=== PATIENT | female | born 1990 | race Caucasian/White ===

== ENCOUNTER 2022-01-08 16:23 | Outpatient (CLI) | payer BC, SELFPAY | END 2022-01-08 16:24 | disposition home or self-care (01) | LOC: ANHLAB 16:26 | PROVIDERS: PCP Family Medicine; Visit Provider Obstetrics & Gynecology | DX: O20.0 Threatened abortion (principal); Z3A.00 Weeks of gestation of pregnancy not specified | CPT/HCPCS: 36415; 84702; 86850; 86900; 86901 ==

== ENCOUNTER 2022-07-20 16:31 | Emergency (ER) | payer BC, SELFPAY ==
[2022-07-20] VITALS (26 sets, daily range): BP systolic 104–139; BP diastolic 68–97; PULSE 85–109; RESP 14–27; TEMP 36.2–36.4; O2SAT 91–100
--- NOTE | ~2022-07-20 | CT_ITS ---
Clinical Indication: Shortness of breath, tachycardia CT Scan of the Chest with Contrast: Technique: Contiguous sections were acquired throughout the chest after intravenous administration of 100 cc of Omnipaque 350. Dose reduction technique was used on this scan by utilizing automated expos ure control and iterative reconstruction technique. The dose-length product (DLP) was 585.48 mGy-cm. Findings: There is no evidence of any significant mediastinal, hilar or axillary lymphadenopathy. There is no f illing defect in the pulmonary arterial tree to suggest pulmonary embolus. There is no evidence of ao rtic dissection or aneurysm. There is no evidence of pleural or pericardial effusion. The lungs are clear, aside from probable minimal dependent hypoventilatory changes. Images through the upper abdomen reveal no abnormalities. Impression: No evidence of pulmonary embolus, aortic dissection, or aortic aneurysm. No significant pulmonary abnormality evident. Reviewed, dictated and finalized at [facility]. Impression: No evidence of pulmonary embolus, aortic dissection, or aortic aneurysm. No significant pulmonary abnormality evident.
--- NOTE | 2022-07-20 16:34 | ECG_ITS ---
Measurements Intervals [place] Rate: 84 P: 40 MO: 132 QRS: 50 QRSD: 94 T: 36 QT: 347 QTc: 410 Interpretive Statements SINUS RHYTHM NORMAL ELECTROCARDIOGRAM NO PREVIOUS ECG AVAILABLE FOR COMPARISON Electronically Signed On 07-21-2022 7:20:36 CDT by Moody Yates M.D.
[2022-07-20 17:11] LABS: Basophils Percent Auto 0.5 % (0.2-1.2); Eosinophils Absolute Auto 0.2 K/mm3 (0-0.3); Eosinophils Percent Auto 2.2 % (0-4.4); Hematocrit 34.1 % (37.0-47.0); Hemoglobin 11.4 g/dL (12.0-15.0); Immature Granulocyte Percent A 1.2 % (0-0.5); Lymphocytes Absolute Auto 2.72 K/mm3 (0.9-3.2); Mean Corpuscular HGB Conc 33.4 g/dl (32-36); Mean Corpuscular Hemoglobin 31.9 pg (26-34); Mean Corpuscular Volume 95.5 fl (80-100); Mean Platelet Volume 9.5 fl (7.4-10.4); Monocytes Absolute Auto 0.5 K/mm3 (0.1-0.6); Monocytes Percent Auto 6.3 % (2.6-8.5); Neutrophils Absolute Auto 4.7 K/mm3 (1.3-6.7); Neutrophils Percent Auto 56.8 % (45.5-73.1); Platelet Count Result 179 k/mm3 (150-375); Red Blood Count 3.57 M/mm3 (4.2-5.4); Red Cell Distribution Width 12.6 % (11.5-14.5); White Blood Count 8.2 K/mm3 (4.5-10.0)
[2022-07-20 17:23] LABS: Alanine Aminotransferase 20 U/L (6-35); Albumin Level 3.3 g/dL (3.5-5.1); Alkaline Phosphatase 88 U/L (38-126); Anion Gap 4 mmol/L (8-16); Aspartate Amino Transferase 24 U/L (14-36); Bilirubin,Total 0.4 mg/dL (0.2-1.3); Blood Urea Nitrogen 8 mg/dL (7-17); Calcium 8.2 mg/dL (8.4-10.2); Carbon Dioxide 27 mmol/L (22-30); Chloride 104 mmol/L (98-107); Estimated CRCL calculation 114 ml/min; Estimated Glomerular Filt Rate > 60; Glucose 110 mg/dL (65-110); Potassium 3.6 mmol/L (3.4-5.0); Sodium 135 mmol/L (137-145)
--- NOTE | 2022-07-20 18:20 | PC.NURSE ---
Patient states her son had strep recently and her cough is similar to the one her son had.
--- NOTE | 2022-07-20 19:09 | ED.SOB ---
HPI - SOB/Dyspnea General Chief Complaint: Shortness of Breath/Dyspnea Stated Complaint: sob, high heart rate Time Seen by Provider: 07/20/22 18:21 History of Present Illness HPI Narrative: 32-year-old female presented the emergency department for evaluation of worsening shortness of breath and rapid heart rate. Patient states over the course of the last few days she has had increased shortness of breath associated with exertion. Patient is 33 weeks and follows up with Dr. Bustos. Patient was referred to the emergency department for evaluation. Patient states she did have a recent sick child at home and felt that she was exposed. Patient was swabbed for strep throat but was negative. Patient has had no COVID testing. Patient denies any chest pain. Patient does have an underlying history of asthma. Patient states she has had increased wheeze as well. Patient denies any vaginal bleeding vaginal discharge or uterine cramping. Related Data Allergies Allergy/AdvReac Type Severity Reaction Status Date / Time morphine Allergy Intermediate Hives Verified 07/16/22 10:59 Review of Systems Review of Systems: All systems reviewed & are unremarkable except as noted in HPI and below PMFSH Family History Family History Other Heart disease Hyperlipidemia Hypertension Social History Social History (Updated 07/16/22 @ 11:00 by Viktoriya Cevallos) Social History: Smoking status: Never smoker Second hand tobacco smoke exposure: No Alcohol intake: current Alcohol use details: Rarely Substance use: never Substance use type: does not use Lack of Transportation: No Lack of Food: Never True Current Housing: I Have Housing Concerned About Future Housing: No Difficulty Paying Gas/Electric Bills: No Difficulty Paying for Meds: No Currently Unemployed: No Education: Decline to Answer Difficulty w/ Childcare or Family Care: No Living arrangements: with family Occupation/Education: occupation Gender identity (if verbalized by the patient): Female Sexual Orientation (if Verbalized by the Patient): Straight or Heterosexual Exam Narrative: APPEARANCE: Well appearing, no pain, no distress, well-nourished. HEAD: normocephalic, atraumatic. EYES: PERRLA/EOMI, conjunctivae clear. NOSE: Normal no drainage THROAT: Pharynx clear, no exudate. NECK: Supple. No adenopathy, no masses. RESPIRATORY: Airway patent, respirations nonlabored. Clear to auscultation bilaterally, no rales, rhonchi, wheezing. CARDIOVASCULAR: Regular rate and rhythm without murmurs rubs or gallops. ABDOMINAL: Soft, nontender, nondistended, normal bowel sounds MUSCULOSKELETAL: Moves all extremities. Strength/ROM intact, No edema, No calf tenderness. NEURO: Alert. Cranial nerves II through XII intact. Grossly intact SKIN: Warm, dry. Normal Color Course Course Emergency Course: 32-year-old female presenting to the ED for evaluation of increased shortness of breath. Patient initially presented to OB but she was referred to the emergency department for evaluation. We are calling OB to have them run a toco monitor. Patient is mildly tachycardic and does have some wheeze on exam. Patient will be treated with IV fluids, albuterol nebulizer and a D-dimer is pending. The risk and benefits of doing the CTA scan was discussed with the patient. All questions concerns were addressed. Patient is afebrile with no leukocytosis. Patient was negative for COVID influenza and RSV. CTA showed no evidence of pulmonary embolism. Patient was evaluated by [facility] and had a toco monitor. [facility] nurse discussed the case with Dr. Bustos and they were comfortable with the plan for discharge to home. Patient's heart rate improved with rehydration. Patient felt that her breathing improved after a breathing treatment. CTA was negative for pulm embolism. Patient was prescribed a prescription f
--- NOTE | 2022-07-20 19:10 | PC.NURSE ---
Dr. Desai advised to call OB and have a TOCO monitor placed on the patient. Called [facility] who advised they will be down shortly.
[2022-07-20] MEDS: SODIUM CHLORIDE 0.9% IV 1,000 ML 500 ML IV CONT (19:20)
[2022-07-20] MEDS: ALBUTEROL SULFATE NEB 2.5 MG/3 ML INH INHALATION (19:24)
[2022-07-20 19:26] LABS: Influenza A QL RT-PCR Negative (Negative); Influenza B QL RT-PCR Negative (Negative); RSV RNA, RT-PCR Negative (Negative); SARS-CoV-2 RNA PCR Negative (Negative)
== END 2022-07-20 21:36 | disposition home or self-care (01) ==
PROVIDERS: Emergency Provider Emergency Medicine; PCP Family Medicine
DX: O26.893 Other specified pregnancy related conditions, third trimester (principal); R06.02 Shortness of breath; Z20.822 Contact with and (suspected) exposure to COVID-19; Z3A.33 33 weeks gestation of pregnancy
CPT/HCPCS: 36415; 71275; 80053; 85025; 85380; 87637; 93005; 94640; 96360; 96361; 99284; J7030; Q9967

== ENCOUNTER 2022-08-28 06:38 | Outpatient (CLI) | payer BC, SELFPAY ==
[2022-08-28 07:10] LABS: Hematocrit 32.8 % (37.0-47.0); Hemoglobin 10.9 g/dL (12.0-15.0); Mean Corpuscular HGB Conc 33.2 g/dl (32-36); Mean Corpuscular Hemoglobin 30.4 pg (26-34); Mean Corpuscular Volume 91.4 fl (80-100); Mean Platelet Volume 9.7 fl (7.4-10.4); Platelet Count Result 184 k/mm3 (150-375); Red Blood Count 3.59 M/mm3 (4.2-5.4); Red Cell Distribution Width 12.3 % (11.5-14.5); White Blood Count 7.2 K/mm3 (4.5-10.0)
[2022-08-29 15:56] LABS: Rapid Plasma Reagin Non-Reactive (NonReactive)
== END 2022-08-28 06:39 | disposition home or self-care (01) ==
LOC: ANHLAB 06:40
PROVIDERS: PCP Family Medicine; Visit Provider Obstetrics & Gynecology
DX: Z01.818 Encounter for other preprocedural examination (principal)
CPT/HCPCS: 36415; 85027; 86592; 86850; 86900; 86901

== ENCOUNTER 2022-08-28 09:58 | Inpatient (IN) | payer BC, SELFPAY ==
[2022-08-28] VITALS (42 sets, daily range): BP systolic 95–131; BP diastolic 53–93; PULSE 71–126; RESP 14–20; TEMP 36.2–36.8; O2SAT 95–99; BMI 42.0
[2022-08-28] MEDS: LACTATED RINGERS 1,000 ML 125 ML IV CONT ×2 (10:58→12:05)
--- NOTE | 2022-08-28 11:23 | LDADM ---
This patient, Helen Avalos, was admitted to Labor/Delivery/Recovery 119 on 08/28/22 at 09:58. Plans for surgery/ and pain management and were discussed with patient. Patient/family oriented to hospital policies and general routines including ID bracelet, bed and alarms, visiting hours, pain management, procedures, bathroom and other care routines, personal items, smoking policy, room service/diet and guest tray routines, infant security routines, and visiting hours. Patient/Family are encouraged to report perceived risks to care and to ask questions if they do not understand what they are told or what they should do.
--- NOTE | 2022-08-28 11:33 | WPDANESEPPF ---
Anes - Initial Pre Proc Eval Procedure: Operation Date: 08/28/22 12:00 Proposed Procedures p Repeat Section - Kavin Brito MD Date/Time: 08/28/22 11:33 Surgeon: Kavin Brito MD Pre Op Diagnosis: C/S Patient Data Age: 32 Gender: F Height: 1.68 m Weight: 118 kg Last Vital Signs Pulse 92 08/28/22 11:31 BP 121/93 H 08/28/22 11:31 O2 Del Method Room Air 08/28/22 11:13 Allergies Allergy/AdvReac Type Severity Reaction Status Date / Time morphine Allergy Intermediate Hives Verified 07/16/22 10:59 Home Medications Medication Instructions Recorded Confirmed Type albuterol sulfate 90 mcg/actuation 2 inh inhalation Q4H PRN shortness 11/07/20 08/28/22 Rx aerosol inhaler (ProAir HFA) of breath or wheezing #8.5 grams acetaminophen 500 mg capsule 500 mg PO DAILY PRN Back Pain 08/28/22 08/28/22 History vit no.95-ferrous 1 tablet PO DAILY 08/28/22 08/28/22 History fumarate 28 mg-folic acid 800 mcg tablet () Patient hx anesthesia problems: none Family hx anesthesia problems: none Results Review: All pre-operative results and documents have been reviewed as part of the pre-operative evaluation. [facility] Past Medical History Medical History Asthma Family History Family History Mother Heart disease Hypertension Diabetes mellitus Father Hyperlipidemia Father Hypertension Social History Social History Social History: Smoking status: Never smoker Second hand tobacco smoke exposure: No Alcohol intake: current Alcohol use details: Rarely Substance use: never Substance use type: does not use Lack of Transportation: No Lack of Food: Never True Current Housing: I Have Housing Concerned About Future Housing: No Difficulty Paying Gas/Electric Bills: No Difficulty Paying for Meds: No Currently Unemployed: No Education: Decline to Answer Difficulty w/ Childcare or Family Care: No Living arrangements: with family Occupation/Education: occupation Gender identity (if verbalized by the patient): Female Sexual Orientation (if Verbalized by the Patient): Straight or Heterosexual Spiritual care concerns: No Comments will use IT fentanyl instead of morphine 10mcg Anes - Eval Final PreProcedure Day of Procedure 08/28/22 11:33 Patient weight: morbidly obese Heart: regular rate and rhythm Lungs: clear to auscultation Airway: Mallampati scale class II Neurological: alert and oriented Last oral intake: >/= 8 hours ASA classification: III Emergent: no Anesthetic plan: proceed Anesthesia type and monitoring: regional spinal and standard monitoring Results Review: All pre-operative results and documents have been reviewed as part of the pre-operative evaluation. Informed Consent: The patient's anesthetic plan and its attendant risks and benefits were discussed with the patient/family/POA. Questions were solicited and answers provided to the satisfaction of the patient/family/POA.
[2022-08-28] MEDS: LORATADINE 10 MG TABLET PO (11:49)
--- NOTE | 2022-08-28 11:57 | PM.IMHP ---
H&P: HPI History of Present Illness Date/Time: 08/28/22 11:57 Chief Complaint: Here for c section Narrative: 32 y/o at 39 1/7 weeks here for repeat . GBS neg. Review of Systems Review of Systems: All systems reviewed & are unremarkable except as noted in HPI and below PMFSH Past Medical History Medical History Asthma Surgical History Surgical History History of appendectomy History of delivery History of ear surgery Family History Family History Mother Heart disease Hypertension Diabetes mellitus Father Hyperlipidemia Father Hypertension Social History Social History Social History: Smoking status: Never smoker Second hand tobacco smoke exposure: No Alcohol intake: current Alcohol use details: Rarely Substance use: never Substance use type: does not use Lack of Transportation: No Lack of Food: Never True Current Housing: I Have Housing Concerned About Future Housing: No Difficulty Paying Gas/Electric Bills: No Difficulty Paying for Meds: No Currently Unemployed: No Education: Master's Degree or Higher Difficulty w/ Childcare or Family Care: No Living arrangements: with family Occupation/Education: occupation Gender identity (if verbalized by the patient): Female Sexual Orientation (if Verbalized by the Patient): Straight or Heterosexual Spiritual care concerns: No Meds Home Medications and Allergies Home Medications Medication Instructions Recorded Confirmed Type albuterol sulfate 90 mcg/actuation 2 inh inhalation Q4H PRN shortness 11/07/20 08/28/22 Rx aerosol inhaler (ProAir HFA) of breath or wheezing #8.5 grams acetaminophen 500 mg capsule 500 mg PO DAILY PRN Back Pain 08/28/22 08/28/22 History vit no.95-ferrous 1 tablet PO DAILY 08/28/22 08/28/22 History fumarate 28 mg-folic acid 800 mcg tablet () Allergies Allergy/AdvReac Type Severity Reaction Status Date / Time morphine Allergy Intermediate Hives Verified 07/16/22 10:59 Vital Signs Vital Signs - 24 hr 08/28/22 11:13 08/28/22 11:00 08/28/22 11:02 Pulse Rate 88 95 Blood Pressure 126/91 H 107/72 Oxygen Delivery Room Air 08/28/22 11:16 08/28/22 11:31 08/28/22 11:46 Pulse Rate 85 92 93 Blood Pressure 112/83 121/93 H 117/80 Oxygen Delivery Exam Const: Orientation/consciousness: patient oriented x3 Other: Well-developed, well-nourished female in no acute distress. Neck: Thyroid: thyroid normal Lymphatic: no lymphadenopathy noted (in neck, axilla or inguinal nodes) Resp: Effort & Inspection: normal respiratory effort Auscultation: clear to auscultation bilaterally Cardio: Rate: regular rate Rhythm: regular rhythm Heart sounds: S1 normal heart sound present and S2 normal heart sound present GI: Other: ABD: Soft, nontender, nondistended, gravid. NST reactive. TOCO: irregular contractions. No guarding or rebound tenderness. No hepatosplenomegaly. : General: Yes no CVA tenderness Other: Cervix 2/80/-2 Back/Spine/Pelvis: Back: no CVA tenderness Skin: General skin exam: normal color and no rashes or lesions noted Neuro: General: patient oriented x3 Extrem: Other: Extremities: nontender with no edema Psych: Mental Status: mental status grossly normal Affect: normal affect Assessment and Plan Assessment and plan (1) History of delivery: Code(s): Z98.891 - History of uterine scar from previous surgery Status: Acute Assessment and Plan: A: IUP at 39 1/7 weeks with prior , here for repeat. P: Offered repeat low transverse delivery. She understands risks of surgery to include risks of anesthesia, ris
--- NOTE | 2022-08-28 12:03 | WPDHPUPDATE1 ---
History and Physical Update Update Date/Time: 08/28/22 12:03 History and Physical has been reviewed, including an updated exam of the patient. There are NO changes in the patient's condition. Risks, benefits, and alternatives have been discussed and questions answered. Patient agrees to proceed with procedure.
[2022-08-28] MEDS: ceFAZolin 2 GM/D5W 50 ML 2 GM/50 ML BAG IVPB (12:07)
--- NOTE | 2022-08-28 13:10 | PM.OBPRVD ---
OB - Delivery Note Procedure Delivery date: 08/28/22 Procedure: Procedures Operation Date: 08/28/22 12:00 <No data on this case meets the specified criteria> Repeat low transverse delivery Delivery monitor: External FHT and External Uterine Route of delivery: Specimen: Yes (Cord blood) Quantitative Blood Loss (ml): 655 Anesthesia type: Spinal Disposition: PACU Complications: None Narrative: Preop Diagnosis: IUP at 39 1/7 weeks. Prior delivery, desires repeat. Postop Diagnosis: Same. Findings: Normal-appearing uterus, tubes and ovaries. The patient was taken to the operating room where she was prepared and draped in the usual sterile fashion in dorsal supine position with a leftward tilt. She received cefazolin preoperatively. Spinal anesthesia was found to be adequate. A Pfannenstiel skin incision was made along the previous scar line and was carried through to the underlying layer of the fascia. The fascia was incised in the midline and the incision was extended laterally. The fascia was dissected free of the underlying rectus muscles. The rectus muscles were in the midline. The peritoneum was identified, tented up and entered sharply. The peritoneal incision was extended superiorly and inferiorly with good visualization of the bladder. The bladder blade was placed. The vesicouterine peritoneum was identified, tented up and entered sharply. The incision was extended laterally and the bladder flap was developed. The bladder blade was replaced. The uterus was then incised sharply in a transverse fashion along the lower uterine segment. The incision was extended laterally. The 's head was delivered atraumatically to the sterile field, followed by the body. The nose and mouth were bulb suctioned. After a delay, the cord was clamped and cut. The was handed off the field. Cord blood was collected. The placenta was removed manually and was passed off the field. The uterus was exteriorized and cleared of all clots and debris. The uterine incision was reapproximated using 0 Monocryl in a running, locked fashion. Excellent hemostasis resulted as did excellent reapproximation of the normal anatomy. The uterus was returned the abdomen. The pelvis was irrigated copiously with warmed normal saline. The bladder flap was treated with Hemaderm. Rigorous hemostasis was assured. The fascial layer was reapproximated using 0 Vicryl in a running fashion. The skin was closed with a running, subcuticular stitch of 4 0 Vicryl. Dermaflex was applied externally. Sponge, lap, needle and instrument counts were correct. The patient was taken to the recovery room in stable condition. The went to the nursery in stable condition. I was present and scrubbed the entire procedure. [place] [facility] Date of : 08/28/22 Time of : 12:38 Weeks of gestation at delivery: 39 gender: Male Weight (pounds): 10 Weight (ounces): 5 presentation: vertex Placenta delivery description: Manual Removal and Normal Configuration Cord Vessel Description: 3 Vessels and Delayed Cord Clamping score one minute: 8 score five minutes: 9
--- NOTE | 2022-08-28 13:14 | PM.OBDSVD ---
DS: Admitting Diagnosis Discharge Date 08/30/22 Admitting Diagnosis IUP at 39 1/7 weeks Prior , deisres repeat DS: Discharge Diagnosis Discharge Diagnosis (1) delivery delivered: Code(s): O82 - Encounter for delivery without indication Status: Acute OB - DS: Summary OB Procedures : None OB Procedures Intrapartum: OB Procedures: : None Peripartum Data Procedures: Procedures Operation Date: 08/28/22 12:00 <No data on this case meets the specified criteria> Repeat LTCS Time Spent with Patient Time attestation: Total time spent providing and/or coordinating discharge services: Discharge Plan Discharge Attending physician on discharge: Kavin Brito Discharging Clinician: Kavin Brito Patient Disposition: Home, Self-Care Activity: may shower, may drive after 2 weeks and pelvic rest Diet: regular Wound Care Instructions: incision open to air Discharge Instructions: Call or return if temperature above 100.4? F, increased abdominal pain, increased vaginal bleeding or any new problems. Stand Alone Forms: General Discharge Information Follow-up/Referrals: Kavin Brito MD [Physician] - 4 Weeks Discharge Medications: New ibuprofen 600 mg tablet 600 mg PO Q6H PRN (Reason: cramps) Qty: 30 0RF ferrous sulfate 325 mg (65 mg iron) tablet 325 mg PO DAILY Qty: 30 0RF hydrocodone-acetaminophen 5-325 mg tablet 1 - 2 tablet PO Q6H PRN (Reason: pain) Qty: 30 0RF Continued albuterol sulfate [ProAir HFA] 90 mcg/actuation HFA aerosol inhaler 2 inh inhalation Q4H PRN (Reason: shortness of breath or wheezing) Qty: 8.5 2RF acetaminophen [Tylenol Extra Strength] 500 mg Capsule 500 mg PO DAILY PRN (Reason: Back Pain) PNV cmb#95-ferrous fumarate-FA [] 28 mg iron- 800 mcg Tablet 1 tablet PO DAILY Date of admission: 08/28/22 09:58 Primary Care Provider: Aminta Narayan Admitting Provider: Kavin Brito Attending physician on admission: Kavin Brito Condition: Stable
[2022-08-28] MEDS: OXYTOCIN 30 UNITS/NS 500 ML 30 UNITS/500 ML BAG 125 UNITS IV CONT (15:09)
[2022-08-28] MEDS: ACETAMINOPHEN 325 MG TABLET 650 MG PO (15:20)
--- NOTE | 2022-08-28 15:45 | PC.NURSE ---
1545 - Patient has recently been moved to the PP room and is being cleaned up and assessed by the Primary RN. Before her arrival to the PP floor the Primary RN reported a at 1345, low blood sugar downstairs at 1429, and the 10lb-5.4 oz infant was bottle fed. Mother doesn't have a lengthy successful history with her first child. Discussed with Primary RN the plan of the importance of encouraging [id number]-[id number], hand expression, and practicing big, open, wide gape giving the a mouthful of breast as RN will not be here for the next feeding. RN will revisit working with the dyad tomorrow. [id number] Introductions were made, then consulted with patient to assess needs related to . Mother led the conversation with her?plans to feed?her infant, states the infant latched downstairs and she has a history of 4 months with her now 5 year old child. Resources provided with mom/baby guide and a plan to check in tomorrow. Mother was encouraged to do a lot of [id number], remove the first milk with her hands and feed her infant with finger feeding, collect the colostrum in a spoon/medicine cup for a feeding, or paced bottle feeding if infant doesn't latch well during the night. Mother is confident that the infant boy latched well without pain for the first feeding. Primary RN is present.
[2022-08-28] MEDS: KETOROLAC 30 MG/ML VIAL (*BKC) IV PUSH (16:25)
[2022-08-28] MEDS: HYDROcodone/acetaminophen (*CRX) 5-325 MG TABLET 1 TAB PO ×2 (16:26→19:30)
[2022-08-28] MEDS: DEXTROSE 5%/0.45% SOD CHL 1,000 ML 125 ML IV CONT (19:30)
[2022-08-28] MEDS: IBUPROFEN 600 MG TABLET PO (22:55)
[2022-08-28] MEDS: HYDROcodone/acetaminophen (*CRX) 10-325 MG TABLET 1 TAB PO (22:55)
[2022-08-29] MEDS: HYDROcodone/acetaminophen (*CRX) 10-325 MG TABLET 1 TAB PO (02:35)
[2022-08-29 05:33] LABS: Basophils Percent Auto 0.3 % (0.2-1.2); Eosinophils Absolute Auto 0.1 K/mm3 (0-0.3); Hematocrit 28.8 % (37.0-47.0); Hemoglobin 9.3 g/dL (12.0-15.0); Immature Granulocyte Absolute 0.04 K/mm3 (0.00-0.031); Immature Granulocyte Percent A 0.5 % (0-0.5); Lymphocytes Absolute Auto 1.88 K/mm3 (0.9-3.2); Lymphocytes Percent Auto 24.2 % (18.3-44.2); Mean Corpuscular HGB Conc 32.3 g/dl (32-36); Mean Corpuscular Hemoglobin 30.1 pg (26-34); Mean Corpuscular Volume 93.2 fl (80-100); Monocytes Absolute Auto 0.6 K/mm3 (0.1-0.6); Monocytes Percent Auto 8.2 % (2.6-8.5); Neutrophils Absolute Auto 5.1 K/mm3 (1.3-6.7); Neutrophils Percent Auto 65.8 % (45.5-73.1); Platelet Count Result 147 k/mm3 (150-375); Red Blood Count 3.09 M/mm3 (4.2-5.4); Red Cell Distribution Width 12.4 % (11.5-14.5); White Blood Count 7.8 K/mm3 (4.5-10.0)
[2022-08-29 07:19] VITALS: BP 117/87; PULSE 65; RESP 18; TEMP 36.5; O2SAT 100
[2022-08-29] MEDS: IBUPROFEN 600 MG TABLET PO ×3 (07:22→20:21)
[2022-08-29] MEDS: HYDROcodone/acetaminophen (*CRX) 5-325 MG TABLET 1 TAB PO (07:24)
[2022-08-29] MEDS: DOCUSATE SODIUM 100 MG CAPSULE PO ×2 (07:35→17:45)
[2022-08-29] MEDS: POLYSACCHARIDE IRON COMPLEX 150 MG CAPSULE PO ×2 (07:35→17:45)
[2022-08-29] MEDS: MULTIVIT/MIN/PREN/FOL AC/IRON TABLET 1 TAB PO (07:35)
[2022-08-29 12:20] VITALS: BP 113/71; PULSE 86; RESP 16; TEMP 37.4; O2SAT 99
[2022-08-29] MEDS: ACETAMINOPHEN 325 MG TABLET 650 MG PO ×2 (13:33→20:20)
--- NOTE | 2022-08-29 13:58 | WPDANLDPN2 ---
Anes-Prog Note L&D Date/Time: 08/29/22 13:58 Neuro status: Neuro function grossly intact. Vital Signs: Last Vital Signs Temp 37.4 C 08/29/22 12:20 Pulse 86 08/29/22 12:20 Resp 16 08/29/22 12:20 BP 113/71 08/29/22 12:20 Pulse Ox 99 08/29/22 12:20 O2 Del Method Room Air 08/28/22 14:45 Pain score (VAS): 2 I/O: Intake & Output 08/28/22 08/29/22 08/29/22 23:59 07:59 15:59 Intake Total 1500 250 Output Total 575 1550 Balance 925 -1300 Patient feedback: Patient satisfied with anesthetic care.
--- NOTE | 2022-08-29 13:59 | WPDANLDNPN2 ---
Anes-Prog Note L&D-Neuraxial Date/Time: 08/29/22 13:59 Patient feedback: Patient satisfied with post-operative pain management.
--- NOTE | 2022-08-29 14:45 | PM.OBPNVD ---
OB - PN: Subj Subjective Date/time seen: 08/29/22 14:45 Narrative: Pain OK. Tolerating diet. Would like circumcision for son. OB - PN: Obj Data Labs 08/29/22 03:01 Labs: Laboratory Results - last 24 hr 08/29/22 03:01 WBC 7.8 RBC 3.09 L Hgb 9.3 L Hct 28.8 L MCV 93.2 MCH 30.1 MCHC 32.3 RDW 12.4 Plt Count 147 L MPV 10.0 Immature Gran % (Auto) 0.5 Neut % (Auto) 65.8 Lymph % (Auto) 24.2 Campbell % (Auto) 8.2 Eos % (Auto) 1.0 Baso % (Auto) 0.3 Lymph # (Auto) 1.88 Campbell # (Auto) 0.6 Eos # (Auto) 0.1 Baso # (Auto) 0.0 Abs Immat Gran (auto) 0.04 H Absolute Neuts (auto) 5.1 Absolute Nucleated RBC 0.0 Nucleated RBC % 0.0 OB - PN A/P Plan day: 1 Comments: A: POD#1, doing well. P: Routine care. Reviewed circ. Exam Narrative: AVSS I/O OK ABD soft, nontender, fundus firm. Incision c/d/i. EXT nontender
--- NOTE | 2022-08-29 15:12 | PC.NURSE ---
[id number] Introductions were made, then consulted with patient to assess needs related to . Mother led the conversation with her?plans to feed?her infant and has independently latched her to the right breast using football positioning. Resources provided for inpatient and outpatient services with the feeding sheet, mom/baby guide and name written on the white board. Mother voiced understanding of information and will call if there is a request for assistance. Reported to the primary RN. [id number] Consulted with patient to assess needs related to . Mother led conversation with her experience with feeding baby so far and states she has difficulty latching infant to the left breast. Mother requests assistance with latching. Reviewed working with , supporting breast and how to protect the nipples with an optimal deep latch, good positioning, and good hand washing. Encouraged understanding the benefits of skin to skin, responding to feeding cues, frequencies of feeding 8-12 times in 24 hours (approximately 2-3 hours), duration of feedings, milk production, intake/output feeding sheet and signs of adequate intake encouraging swallowing at the breast. Reviewed positioning and alignment, supporting breast, off-centered (asymmetrical latch) and leading with the chin with big, open, wide gape. latched optimally to the left breast in football position. Education given to mother of how to visualize suck/swallow ratios and listen for drinking at the breast and none were visualized or heard at this time. Infant was able to maintain latch without discomfort to mother. Nipple care reviewed with optimal latch, good positioning and using clean hands when feeding her infant and touching her breast. self detached and blisters were visualized on the tip of her nipple. Reviewed breast/nipple care. Reviewed risks and benefits of pumping, supplementing, appropriate intake/output, jaundice level was assessed while infant was [id number] between from the left to the right and it was in normal range. Mother demonstrated latching to her right breast using football positioning independently. Swallowing was visualized and heard with an appropriate suck/swallow ratio. Resources used to facilitate learning were used from the visual handout/QR codes/ tool/mom and baby guide. Mother voiced understanding of the education shared, to call for assistance if the does not latch or if there is discomfort with . Reported to the primary RN.
[2022-08-29 20:27] VITALS: BP 117/80; PULSE 73; RESP 18; TEMP 36.4; O2SAT 99
[2022-08-30] MEDS: DOCUSATE SODIUM 100 MG CAPSULE PO (07:00)
[2022-08-30] MEDS: POLYSACCHARIDE IRON COMPLEX 150 MG CAPSULE PO (07:00)
[2022-08-30] MEDS: ACETAMINOPHEN 325 MG TABLET 650 MG PO (07:00)
[2022-08-30] MEDS: MULTIVIT/MIN/PREN/FOL AC/IRON TABLET 1 TAB PO (07:00)
[2022-08-30] MEDS: IBUPROFEN 600 MG TABLET PO (07:01)
[2022-08-30 07:50] VITALS: BP 123/94; PULSE 85; RESP 18; TEMP 36.6; O2SAT 99
--- NOTE | 2022-08-30 12:19 | PM.OBPNVD ---
OB - PN: Subj Subjective Date/time seen: 08/30/22 12:19 Narrative: Pain OK. Tolerating diet. Would like to go home. OB - PN: Obj Data Labs 08/29/22 03:01 OB - PN A/P Plan Comments: A: POD#2, doing well. P: Home to f/u 4 weeks. Exam Narrative: AVSS ABD soft, nontender, fundus firm. Incision c/d/i. EXT nontender
[2022-08-31 11:20] VITALS: BP 132/81; PULSE 58; RESP 18; TEMP 36.6; O2SAT 100
== END 2022-08-30 16:41 | disposition home or self-care (01) | DRG 788 ==
LOC: ANHLDR 13:15 → ANHOB2 15:37
PROVIDERS: Admitting Provider Obstetrics & Gynecology; PCP Family Medicine; Visit Provider Obstetrics & Gynecology
PROC: 10D00Z1 Extraction of Products of Conception, Low, Open Approach (ICD-10-PCS; CPT 59514; principal; 2022-08-28 12:00)
DX: O34.219 Maternal care for unspecified type scar from previous cesarean delivery (principal); O99.52 Diseases of the respiratory system complicating childbirth; J45.909 Unspecified asthma, uncomplicated; Z3A.39 39 weeks gestation of pregnancy; Z37.0 Single live birth; Z90.49 Acquired absence of other specified parts of digestive tract
CPT/HCPCS: 36415; 85025; A9270; J0690; J1741; J1885; J2370; J2405; J2590; J3010; J7120

== ENCOUNTER 2022-09-07 10:10 | Outpatient (RCR) | payer BC, SELFPAY ==
--- NOTE | 2022-09-07 15:05 | PC.NURSE ---
In- 1225 Out- 1139 Reason for visit: Latch issues History: mother has a history of a section (C/S). esmer Jurado was born via C/S on [birth year] EGA of 39. There was some separation after . Once infant was in the recovery room he was breastfed X2, then fed a bottle at 2245 related to a low blood sugar of 35mg/dl. History: from mother for a time after . Combination feeding was done while inpatient with and Gent[employer] formula. Observations: Mother is comfortable, independent latching her infant to the right breast using football positioning. Infant latches effectively cause mother no pain and swallowing is heard with a 1:1 suck/swallow ratio once the milk let down . Infant maintains for 20 minutes with no pain to mother. There is hesitation with latching to the left breast as mother has blisters and states there is initial pain with latching. RN gives mother the option to work on latching effectively with great positioning or to continue to pump the left breast until the blisters are healed, then begin latching on the left breast again. Mother chooses to practice latching to the left breast. Mother places infant in football position and prepares to latch. There is a slight adjustment made with the positioning to place infants nose lined up with the nipple. Infants chin is touching the breast gland, then when he demonstrates big, open, wide gape is brought deeply to the breast with an effective latch. Initial pain was felt, then subsided after the milk released. No additional injury was visualized after a 10 minute session. Mother was encouraged to allow the breast milk to dry on her nipple for healing. As listed in the weights below, infant removed 9mls in 10 minutes. Mother plans to remove the milk with a pump at home. Reviewed the risks and benefits between exclusively to allow the to determine the milk supply and additional pumping to demand a milk supply on top of . Encouraged mother to breastfeed on demand aiming for every 1-3 hours. weight: 4690g (10-5.4) Lowest weight: 4395g (9-11.0) Last weight: 9-11 on 09/04/22 Pre-feed weight: 4631g (10-3.3) Post-feed weight: 4671g (right breast only) 4680g (after 10 on the left breast) Most of the time infant breastfeeds every 2-3 and before the consult breastfed 1 1/2 hours ago. Plan of Care: Mother is planning to practice latching with the football positioning on the left breast to achieve a more ideal latch for healing during . Mother was also encouraged to pump the left breast allowing the left nipple to heal before on that side if she chooses to do so. Reviewed preventing/care of mastitis, engorgement, clogged duct with what to look for, and what to do, and to call a provider if needed. Follow up plans: Mother will call if there are any other concerns or questions at a later time.
== END 2022-12-06 23:59 | disposition home or self-care (01) ==
LOC: ANHOBOP 10:10
PROVIDERS: PCP Family Medicine; Visit Provider Pediatrics
DX: Z39.1 Encounter for care and examination of lactating mother (principal)
CPT/HCPCS: 99212; G0463

== ENCOUNTER → 2023-02-04 15:08 | Outpatient (CLI) | payer BC, SELFPAY ==
--- NOTE | ~2023-02-04 | XR_ITS ---
Clinical Indication: Dyspnea PA and lateral views of the chest: Comparison: 05/25/2020 Findings: The lungs are clear, without evidence of focal consolidation or pleural effusion. Cardiome diastinal silhouette is within normal limits. Bones and soft tissues are unremarkable. Impression: Normal chest. Reviewed, dictated and finalized at location . E OFFICER Impression: Normal chest.
== END ==
PROVIDERS: PCP Physician Assistant; Visit Provider Physician Assistant
DX: R06.00 Dyspnea, unspecified (principal)
CPT/HCPCS: 71046